=== PATIENT | male | born 1985 | race Caucasian/White ===

== ENCOUNTER 2016-12-06 18:24 | Emergency (ER) | payer OTHER ==
[~2016-12-06 18:24] MED LIST: CELEXA20 MG PO; LANTUS **100 UNITS/ SQ; NEURONTIN400 MG PO; NOVOLOG VI100 UNIT/1 SQ
== END 2016-12-06 19:48 | disposition home or self-care (01) ==
LOC: FER 18:24
DX: S93.401A Sprain of unspecified ligament of right ankle, initial encounter (principal); E10.9 Type 1 diabetes mellitus without complications; F17.210 Nicotine dependence, cigarettes, uncomplicated; W01.0XXA Fall on same level from slipping, tripping and stumbling without subsequent striking against object, initial encounter; Y92.009 Unspecified place in unspecified non-institutional (private) residence as the place of occurrence of the external cause
CPT/HCPCS: 73610; 73630; 99283

== ENCOUNTER 2017-02-20 17:05 | Emergency (ER) | payer OTHER ==
[2017-02-20 19:13] LABS: BASOPHIL 0.9 % (0-2); EOSINOPHIL 0.4 % (0-5); HGB 17.2 g/dl (13.2-18.0); LYMPHOCYTE 22.8 % (15-48); MCH 33.7 pg (25.0-31.0); MCHC 36.6 g/dL (32.0-36.0); MONOCYTE 10.4 % (0-12); MPV 9.7 fL (6.0-9.5); NEUTROPHIL 65.5 % (41-80); PLT 272 K/uL (150-400); RBC 5.11 M/uL (4.70-6.00); RDW 12.8 % (11.5-14.0); WBC 7.5 K/uL (4.0-10.5)
[2017-02-20 19:26] LABS: ALBUMIN 4.9 g/dL (3.5-5.0); BILIRUBIN - TOTAL 0.9 mg/dL (0.1-1.0); POTASSIUM 4.2 mmol/L (3.5-5.1); TOTAL PROTEIN 7.9 g/dL (6.4-8.3)
[2017-02-20 19:38] LABS: BILIRUBIN NEGATIVE (NEGATIVE); BLOOD NEGATIVE Ery/uL (NEGATIVE); CLARITY CLEAR (CLEAR); COLOR YELLOW (YELLOW); GLUCOSE (U) NORMAL (NORMAL); KETONE (U) 3+ (LARGE) mg/dL (NEGATIVE); LEUKOCYTES NEGATIVE Leu/uL (NEGATIVE); NITRITE NEGATIVE (NEGATIVE); PROTEIN TRACE (LOW) mg/dL (NEGATIVE); SPECIFIC GRAVITY >=1.030 (1.001-1.030); UROBILINOGEN 0.2 mg/dL (0.2-1.0); pH 5.5 (5.0-9.0)
[2017-02-20 19:42] LABS: URINARY RBC RARE
== END 2017-02-20 19:12 | disposition home or self-care (01) ==
LOC: FER 17:05
PROVIDERS: Emergency Medicine
DX: R11.10 Vomiting, unspecified (principal); E10.9 Type 1 diabetes mellitus without complications; F17.210 Nicotine dependence, cigarettes, uncomplicated; Z79.84 Long term (current) use of oral hypoglycemic drugs
CPT/HCPCS: 36415; 74022; 80053; 81001; 85025; J2405